=== PATIENT | male | born 1960 | race Caucasian/White ===

== ENCOUNTER → 2016-03-18 | Outpatient (CLI) | payer OTHER ==
[~2016-03-18] MED LIST: CYCLOBENZAPRINE10 MG PO; GLEEVEC400 MG; KEPPRA500 MG PO; KLONOPIN1 MG; NEXIUM40 MG; PERCOCET 325 MG1 TA3; PERCOCET 325 MG1 TA7 PO; PRISTIQ50 MG; SEROQUEL50 MG; TERAZOSIN HCL2 MG PO
== END | disposition home or self-care (01) ==
LOC: CT 10:58
DX: I60.9 Nontraumatic subarachnoid hemorrhage, unspecified (principal); H74.8X9 Other specified disorders of middle ear and mastoid, unspecified ear

== ENCOUNTER 2016-05-27 00:01 | Emergency (ER) | payer OTHER ==
[~2016-05-27] VITALS: Ht 177.8 cm; Wt 127.0 kg
[~2016-05-27 00:01] MED LIST changes: -PRISTIQ50 MG; +PRISTIQ50 MG PO; -SEROQUEL50 MG; +SEROQUEL50 MG PO
[2016-05-27] MEDS ORDERED: LISINOPRIL10 M1 PO (00:09)
[2016-05-27] MEDS ORDERED: KLONOPIN1 M1 PO (00:09)
[2016-05-27] MEDS ORDERED: VIBRAMYCIN100 MG PO (01:34)
[2016-05-27] MEDS ORDERED: VENTOLIN 02.5 MG/3 M INH (01:34)
[2016-05-27] MEDS ORDERED: MEDROL DOSEPAK4 MG PO (01:34)
== END 2016-05-27 02:25 | disposition home or self-care (01) ==
LOC: ED 00:01
DX: J40 Bronchitis, not specified as acute or chronic (principal); Z98.890 Other specified postprocedural states; Z79.899 Other long term (current) drug therapy

== ENCOUNTER → 2016-07-17 | Outpatient (CLI) | payer OTHER ==
[~2016-07-17] MED LIST changes: +KLONOPIN1 M1 PO; +LISINOPRIL10 M1 PO; +MEDROL DOSEPAK4 MG PO; +VENTOLIN 02.5 MG/3 M INH; +VIBRAMYCIN100 MG PO
== END | disposition home or self-care (01) ==
LOC: RAD 12:53
DX: M51.27 Other intervertebral disc displacement, lumbosacral region (principal); M48.06 Spinal stenosis, lumbar region; M25.78 Osteophyte, vertebrae